=== PATIENT | male | born 1980 | race Asian ===

== ENCOUNTER 2017-11-28 06:13 | Day surgery (SDC) | payer OTHER ==
[2017-11-28] MEDS ORDERED: LIDOCAINE 1% MDV 20ML VIAL SQ (06:30)
[2017-11-28] MEDS ORDERED: PROPOFOL 200 MG/20 ML VIAL As Ordered ×2 (06:43→06:54)
[2017-11-28] MEDS ORDERED: MIDAZOLAM INJ 2 MG/2 ML VIAL (J2250) As Ordered (06:47)
[2017-11-28] MEDS ORDERED: fentaNYL 100 MCG/2 ML INJECTION (J3010) As Ordered (06:48)
[2017-11-28] MEDS: LR 1,000 ML IV (06:50)
[2017-11-28] MEDS ORDERED: KETOROLAC 60 MG/2 ML VIAL (J1885) As Ordered (08:02)
[2017-11-28] MEDS: LIDOCAINE W/EPINEPHRINE 1% 20ML VIAL As Ordered (08:07)
[2017-11-28] MEDS: BUPIVACAINE HCL 0.25% 10 ML VIAL As Ordered (08:08)
[2017-11-28] MEDS ORDERED: ePHEDrine INJ 50 MG/ML VIAL As Ordered (09:05)
== END 2017-11-28 09:15 | disposition home or self-care (01) ==
LOC: M SDC 06:13
DX: D17.22 Benign lipomatous neoplasm of skin and subcutaneous tissue of left arm (principal); M12.9 Arthropathy, unspecified; Z72.0 Tobacco use
CPT/HCPCS: 24071